=== PATIENT | female | born 1950 | race Caucasian/White ===

== ENCOUNTER 2022-09-06 23:30 | Emergency (ER) | payer OTHER, MEDICAID ==
[~2022-09-06] VITALS: Ht 160 cm; Wt 54.4 kg
[2022-09-06 23:41] VITALS: BP 159/96
--- NOTE | 2022-09-06 23:59 | NUR ---
TO BED 11 FOLLOWING TRIAGE
--- NOTE | 2022-09-07 01:23 | NUR ---
PT RESTING IN BED, A/OX4, CHEST RISING AND FALLS SYMETRICAL, NO S/S DISTRESS, PT ON MONITOR
[2022-09-07] MEDS ORDERED: KETOROLAC 60 MG/2 ML VIAL IM ONE (01:45)
--- NOTE | 2022-09-07 03:20 | NUR ---
PT. SEEN RESTING. NO C/O PAIN OR S/S DISTRESS
[2022-09-07] MEDS ORDERED: NAPR-54 PO (06:03)
[2022-09-07 06:05] VITALS: BP 125/88
--- NOTE | 2022-09-07 06:05 | NUR ---
Patient discharged with v/s stable. Written and verbal after care instructions given and explained. Patient alert, oriented and verbalized understanding of instructions. Wheel Chair Assisted with to home. All questions addressed prior to discharge. ID band removed. Patient advised to follow up with PMD. Rx given to patient. Patient educated on indication of medication including possible reaction and side effects. Opportunity to ask questions provided and answered.
== END 2022-09-07 06:05 | disposition home or self-care (01) ==
LOC: MED 23:30
DX: S93.691A Other sprain of right foot, initial encounter (principal); E11.9 Type 2 diabetes mellitus without complications; I10 Essential (primary) hypertension; Z79.4 Long term (current) use of insulin; Z79.899 Other long term (current) drug therapy; W18.30XA Fall on same level, unspecified, initial encounter; Y93.89 Activity, other specified; Y92.89 Other specified places as the place of occurrence of the external cause; Y99.8 Other external cause status
CPT/HCPCS: 73610; 73630; 73700; 96372; 99285; J1885; Q0092